=== PATIENT | male | born 1995 | race American Indian/Alaskan Native ===

== ENCOUNTER 2018-07-23 03:39 | Emergency (ER) | payer MEDICAID, OTHER ==
[2018-07-23] MEDS ORDERED: ZITHROMAX PO ONE (04:49)
[2018-07-23] MEDS ORDERED: ROCEPHIN IM ONE (04:49)
[2018-07-23] MEDS ORDERED: XYLOCAINE 1% MPF 5 mL INFILTRATI ONE (04:49)
--- NOTE | 2018-07-23 04:59 | Emergency Department Report ---
ED Male HPI - General Chief complaint: Urogenital-Male Stated complaint: PAINFUL TO URINATE Time Seen by Provider: 07/23/18 04:48 Source: patient Mode of arrival: Ambulatory Limitations: No Limitations - History of Present Illness MD Complaint: dysuria, hernia - Related Data Sexually active: Yes Previous Rx's Medication Instructions Recorded Last Taken Type Famotidine [Pepcid] 10 mg PO BID #60 tablet 07/08/13 Unknown Rx predniSONE [Deltasone] 5 mg PO .TAPER #21 tab 07/08/13 Unknown Rx Doxycycline [Vibramycin CAP] 100 mg PO BID 10 Days #20 capsule 07/23/18 Unknown Rx Allergies Allergy/AdvReac Type Severity Reaction Status Date / Time peanut Allergy Hives Verified 07/08/13 02:59 sesame oil Allergy Hives Verified 07/08/13 02:59 soy Allergy Hives Verified 07/08/13 02:59 wheat Allergy Hives Verified 07/08/13 02:59 ED Review of Systems ROS: Stated complaint: PAINFUL TO URINATE Other details as noted in HPI Constitutional: denies: chills, fever Eyes: denies: eye pain, eye discharge, vision change ENT: denies: ear pain, throat pain Respiratory: denies: cough, shortness of breath, wheezing Cardiovascular: denies: chest pain, palpitations Endocrine: no symptoms reported Gastrointestinal: denies: abdominal pain, nausea, diarrhea Genitourinary: urgency, dysuria, frequency Musculoskeletal: denies: back pain, joint swelling, arthralgia Skin: denies: rash, lesions Neurological: denies: headache, weakness, paresthesias Psychiatric: denies: anxiety, depression Hematological/Lymphatic: denies: easy bleeding, easy bruising ED Past Medical Hx - Past Medical History Previous Medical History?: Yes Hx Asthma: Yes (as a child) - Surgical History Past Surgical History?: No - Social History Smoking Status: Current Every Day Smoker Substance Use Type: Marijuana - Medications Home Medications: Home Medications Medication Instructions Recorded Confirmed Last Taken Type Famotidine [Pepcid] 10 mg PO BID #60 tablet 07/08/13 Unknown Rx predniSONE [Deltasone] 5 mg PO .TAPER #21 tab 07/08/13 Unknown Rx Doxycycline [Vibramycin CAP] 100 mg PO BID 10 Days #20 capsule 07/23/18 Unknown Rx ED Physical Exam - General Limitations: No Limitations General appearance: alert - Head Head exam: Present: atraumatic - Eye Eye exam: Present: normal appearance, PERRL, EOMI Pupils: Present: normal accommodation - ENT ENT exam: Present: normal orophraynx ED Course Vital Signs 07/23/18 03:44 Temperature 97.6 F Pulse Rate 110 H Respiratory 18 Rate Blood Pressure 122/59 O2 Sat by Pulse 98 Oximetry ED Medical Decision Making - Medical Decision Making this is a STD exposure, plan rocephin, azithromycin, in ed will dc with rx for doxycycline, for 10 days, pt will folllow up with [facility] dept in 2 days for Hiv and HSV screening with health department, pt verbalized ageement and understanding of discharge plan. pt in stable condition at this time. Critical care attestation.: If time is entered above; I have spent that time in minutes in the direct care of this critically ill patient, excluding procedure time. ED Disposition Clinical Impression: STD exposure Disposition: DC-01 TO HOME OR SELFCARE Is pt being admited?: No Does the pt Need Aspirin: No Condition: Stable Instructions: Sexually Transmitted Diseases (ED) Prescriptions: Doxycycline [Vibramycin CAP] 100 mg PO BID 10 Days #20 capsule Referrals: OSVALDO TRONCOSO MD [Primary Care Provider] - 3-5 Days Forms: Work/School Release Form(ED) Time of Disposition: 05:17
[2018-07-23 06:47] VITALS: BP 120/68
== END 2018-07-23 06:47 | disposition home or self-care (01) ==
LOC: ED 03:39
DX: R30.0 Dysuria (principal); R35.0 Frequency of micturition; R39.15 Urgency of urination; Z20.2 Contact with and (suspected) exposure to infections with a predominantly sexual mode of transmission; J45.909 Unspecified asthma, uncomplicated; F17.200 Nicotine dependence, unspecified, uncomplicated; F12.10 Cannabis abuse, uncomplicated; Z79.899 Other long term (current) drug therapy; Z91.010 Allergy to peanuts; Z91.09 Other allergy status, other than to drugs and biological substances
CPT/HCPCS: 99282; J0696

== ENCOUNTER 2020-10-19 08:32 | Emergency (ER) | payer SELFPAY ==
[2020-10-19 08:36] VITALS: BP 130/70
--- NOTE | 2020-10-19 10:33 | Emergency Department Report ---
Chief Complaint: Urogenital-Male Stated Complaint: PAIN IN PRIVATE AREA Time Seen by Provider: 10/19/20 10:28 - HPI History of Present Illness: 25-year-old male patient presents to the emergency department with complaints of penile irritation of 2 days. No preceding fall, trauma, or injury. Patient is sexually active. Denies fever, chills, nausea, vomiting, abdominal pain, testicular pain/swelling, painful urination, inguinal lymphadenopathy. Denies all other complaints at this time. - ROS Review of Systems: GENERAL: Negative for fever. CARDIOVASCULAR: Negative for chest pain. PULMONARY: Negative for shortness of breath. GASTROINTESTINAL: Negative for abdominal pain. MUSCULOSKELETAL: Negative for back pain. NEUROLOGICAL: Negative for headache. INTEGUMENTARY: Positive for irritation. - Exam Vital Signs: Vital Signs 10/19/20 08:35 Temperature 98.0 F Pulse Rate 68 Respiratory 14 Rate Blood Pressure 130/70 O2 Sat by Pulse 100 Oximetry Physical Exam: General: Awake, appropriately interactive, no acute distress. Neck: Supple. Full range of motion intact. Cardiovascular: Normal peripheral perfusion. Pulmonary: No respiratory distress. Patient is speaking normally without use of accessory muscles. 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 Small nontender nonfluctuant papule noted to the ventral surface of the penile shaft. No proximal streaking erythema. No evidence of inguinal hernia. No scrotal edema or tenderness. No testicular asymmetry. No blood or discharge at the urethral meatus. Neurological: No facial asymmetry. Speech is clear. Follows commands. Patient is alert and oriented. Musculoskeletal: Moves all four extremities spontaneously with normal range of motion. Psych: Cooperative. Appropriate mood and affect. MSE screening note: Focused history and physical exam performed. Due to findings the following was ordered: ED Medical Decision Making - Medical Decision Making Patient presents to the emergency department for evaluation of irritation to his penis for 2 days. He is afebrile. Vital signs are stable. No testicular pain/swelling. No difficulty urinating. Patient is sexually active. Physical exam remarkable for papule to the ventral surface of the penile shaft. No evidence of secondary cellulitis warranting oral antibiotics on an emergent basis. Patient will be discharged home with referral for primary care provider and local health department for STD testing. Emphasized the importance of using barrier protection when engaging in sexual intercourse. Patient expressed understanding and is agreeable to plan of care. Strict return precautions provided. ED Disposition for MSE Clinical Impression: Irritation of penis Disposition: Z- MED SCREENING EXAM-LEFT Is pt being admited?: No Does the pt Need Aspirin: No Condition: Stable Instructions: Safe Sex Additional Instructions: Apply warm compresses to the affected area as needed. Apply Neosporin to the affected area 3 times daily. Use barrier protection when engaging in sexual intercourse. Follow-up with primary care provider and/or [facility] this week. Call today to schedule an appointment. See referral information below. Return to the emergency department immediately for new or worsening symptoms. Referrals: [facility] [Provider Group] - 3-5 Days [facility] [Outside] - 3-5 Days Time of Disposition: 10:34
== END 2020-10-19 15:00 | disposition left against medical advice (07) ==
LOC: ED 08:32
DX: N48.29 Other inflammatory disorders of penis (principal); Z53.21 Procedure and treatment not carried out due to patient leaving prior to being seen by health care provider